=== PATIENT | male | born 1985 | race Caucasian/White ===

== ENCOUNTER 2019-04-21 00:14 | Inpatient (IN) | payer BC ==
[2019-04-21] MEDS: DEXTROSE 5%-0.9% NACL 1,000 ML IV ×2 (01:00→13:10)
[2019-04-21] MEDS ORDERED: LEVOFLOXACIN 500MG/D5W (PMX) 100 ML IVPB (03:00)
[2019-04-21 05:31] LABS: ADD MAN DIFF? NO
[2019-04-21 05:37] LABS: BASOPHILS % 0.6 % (0.0-2.0); EOSINOPHILS # 0.2 10^3/ul (0.0-0.5); HEMATOCRIT 41.7 % (42.0-52.0); HEMOGLOBIN 14.1 g/dl (14.0-18.0); LYMPHOCYTES # 2.4 10^3/ul (0.8-2.9); LYMPHOCYTES % 36.2 % (15.0-51.0); MEAN CORPUSCULAR HEMOGLOBIN 30.9 pg (29.0-33.0); MEAN CORPUSCULAR HGB CONC 33.8 g/dl (32.0-37.0); MEAN CORPUSCULAR VOLUME 91.4 fl (82.0-101.0); MONOCYTE # 0.5 10^3/ul (0.3-0.9); MONOCYTES % 7.4 % (0.0-11.0); NEUTROPHIL # 3.5 10^3/ul (1.6-7.5); NEUTROPHILS % 52.5 % (39.0-77.0); PLATELET COUNT 189 10^3/UL (140-415); RED BLOOD COUNT 4.56 10^6/ul (4.70-6.10); RED CELL DISTRIBUTION WIDTH 11.4 % (11.5-14.5)
[2019-04-21 05:37] LABS: WHITE BLOOD COUNT 6.6 10^3/ul (4.8-10.8)
[2019-04-21] MEDS: LEVOFLOXACIN 500MG/D5W (PMX) 100 ML IVPB (05:50)
[2019-04-21] MEDS: PANTOPRAZOLE 40 MG INJ IV (06:34)
[2019-04-21 06:38] LABS: ALANINE AMINOTRANSFERASE 53 IU/L (13-69); ALBUMIN 3.6 g/dl (3.3-4.9); ALBUMIN/GLOBULIN RATIO 1.44; ALKALINE PHOSPHATASE 56 IU/L (42-121); ANION GAP 10 (5-13); ASPARTATE AMINO TRANSFERASE 33 IU/L (15-46); BILIRUBIN,INDIRECT 0.9 mg/dl (0-1.1); BILIRUBIN,TOTAL 0.9 mg/dl (0.2-1.3); BLOOD UREA NITROGEN 10 mg/dl (7-20); CALCIUM 8.9 mg/dl (8.4-10.2); CARBON DIOXIDE 23 mmol/L (21-31); CHLORIDE 111 mmol/L (97-110); CREATININE 0.82 mg/dl (0.61-1.24); Estimated GFR > 60 mL/min (>60); GLUCOSE 95 mg/dl (70-220); LIPASE 319 U/L (23-300); POTASSIUM 3.7 mmol/L (3.5-5.1); SODIUM 144 mmol/L (135-144); TOTAL PROTEIN 6.1 g/dl (6.1-8.1)
[2019-04-21] MEDS: ACETAMINOPHEN 325 MG TAB PO (06:43)
[2019-04-21] MEDS: metroNIDAZOLE 500 MG/NS (PMX) 100 ML IVPB ×2 (16:22→22:09)
[2019-04-21] MEDS: LORAZEPAM 2 MG INJ IV (16:34)
[2019-04-21 17:25] LABS: CARCINOEMBRYONIC ANTIGEN 2.6 ng/ml (0.0-5.0)
[2019-04-21 17:29] LABS: CANCER ANTIGEN 19-9 31.3 U/ml (0.0-37.0)
[2019-04-21] MEDS: BISACODYL (EC) 5 MG TAB PO (18:45)
[2019-04-21] MEDS: PEG/ELECTROLYTES 4L BTL PO (19:04)
[2019-04-22] MEDS: DEXTROSE 5%-0.9% NACL 1,000 ML IV (00:01)
[2019-04-22] MEDS: BISACODYL (EC) 5 MG TAB PO (04:28)
[2019-04-22] MEDS: LEVOFLOXACIN 500MG/D5W (PMX) 100 ML IVPB (04:28)
[2019-04-22] MEDS: PEG/ELECTROLYTES 4L BTL PO (04:29)
[2019-04-22] MEDS: ONDANSETRON 4 MG INJ IV ×2 (04:50→18:33)
[2019-04-22 05:41] LABS: ADD MAN DIFF? NO
[2019-04-22 05:51] LABS: WHITE BLOOD COUNT 6.1 10^3/ul (4.8-10.8)
[2019-04-22 05:51] LABS: BASOPHILS % 0.7 % (0.0-2.0); EOSINOPHILS # 0.2 10^3/ul (0.0-0.5); EOSINOPHILS % 3.1 % (0.0-7.0); HEMATOCRIT 43.5 % (42.0-52.0); HEMOGLOBIN 14.8 g/dl (14.0-18.0); LYMPHOCYTES # 1.9 10^3/ul (0.8-2.9); LYMPHOCYTES % 31.5 % (15.0-51.0); MEAN CORPUSCULAR HEMOGLOBIN 30.8 pg (29.0-33.0); MEAN CORPUSCULAR VOLUME 90.6 fl (82.0-101.0); MEAN PLATELET VOLUME 11.1 fl (7.4-10.4); MONOCYTE # 0.5 10^3/ul (0.3-0.9); MONOCYTES % 7.9 % (0.0-11.0); NEUTROPHIL # 3.5 10^3/ul (1.6-7.5); NEUTROPHILS % 56.5 % (39.0-77.0); PLATELET COUNT 189 10^3/UL (140-415); RED CELL DISTRIBUTION WIDTH 11.5 % (11.5-14.5)
[2019-04-22] MEDS: metroNIDAZOLE 500 MG/NS (PMX) 100 ML IVPB ×2 (06:06→14:36)
[2019-04-22] MEDS: PANTOPRAZOLE 40 MG INJ IV (06:06)
[2019-04-22 06:08] LABS: INR 1.13; PROTIME 14.6 Sec (11.9-14.9); PT RATIO 1.1
[2019-04-22 06:09] LABS: PARTIAL THROMBOPLASTIN TIME 27.1 Sec (23.0-35.0)
[2019-04-22 06:14] LABS: ALANINE AMINOTRANSFERASE 47 IU/L (13-69); ALBUMIN 3.6 g/dl (3.3-4.9); ALBUMIN/GLOBULIN RATIO 1.33; ALKALINE PHOSPHATASE 59 IU/L (42-121); ANION GAP 9 (5-13); ASPARTATE AMINO TRANSFERASE 24 IU/L (15-46); BILIRUBIN,INDIRECT 0.6 mg/dl (0-1.1); BILIRUBIN,TOTAL 0.6 mg/dl (0.2-1.3); BLOOD UREA NITROGEN 3 mg/dl (7-20); CALCIUM 9.1 mg/dl (8.4-10.2); CARBON DIOXIDE 23 mmol/L (21-31); CHLORIDE 114 mmol/L (97-110); CREATININE 0.68 mg/dl (0.61-1.24); Estimated GFR > 60 mL/min (>60); GLUCOSE 94 mg/dl (70-220); POTASSIUM 3.4 mmol/L (3.5-5.1); SODIUM 146 mmol/L (135-144); TOTAL PROTEIN 6.3 g/dl (6.1-8.1)
[2019-04-22 09:29] LABS: C-REACTIVE PROTEIN < 0.5 mg/dl (0.0-0.9)
[2019-04-22] MEDS: PROPOFOL 60 ML (12:06)
[2019-04-22] MEDS: POTASSIUM CHLORIDE (SR) 20 MEQ TAB PO (16:15)
[2019-04-22 17:51] LABS: ADD UMIC NO; UR ASCORBIC ACID NEGATIVE (NEGATIVE); UR BILIRUBIN (Dip) NEGATIVE (NEGATIVE); UR BLOOD (Dip) NEGATIVE (NEGATIVE); UR CLARITY CLEAR (CLEAR); UR COLOR YELLOW (YELLOW); UR GLUCOSE (Dip) NEGATIVE (NEGATIVE); UR KETONES (Dip) NEGATIVE (NEGATIVE); UR LEUKOCYTE ESTERASE (Dip) NEGATIVE Leu/ul (NEGATIVE); UR NITRITE (Dip) NEGATIVE (NEGATIVE); UR SPECIFIC GRAVITY (Dip) 1.008 (1.003-1.030); UR TOTAL PROTEIN (Dip) NEGATIVE (NEGATIVE); UR UROBILINOGEN (Dip) NEGATIVE (NEGATIVE)
[2019-04-22] MEDS: LORAZEPAM 2 MG INJ IV (18:57)
[2019-04-22] MEDS: BUSPIRONE 10 MG TAB PO (21:07)
[2019-04-23 05:44] LABS: LIPASE 343 U/L (23-300)
[2019-04-23] MEDS: PANTOPRAZOLE 40 MG INJ IV (05:55)
[2019-04-23] MEDS: BUSPIRONE 10 MG TAB PO (08:22)
== END 2019-04-23 16:00 | disposition home or self-care (01) | DRG 392 ==
LOC: 2NE 01:14 → 5EC 01:20 → 2NE 01:20 → 5EC 00:14
PROC: 0DB58ZX Excision of Esophagus, Via Natural or Artificial Opening Endoscopic, Diagnostic (ICD-10-PCS; principal; 2019-04-22 11:15)
PROC: 0DB68ZX Excision of Stomach, Via Natural or Artificial Opening Endoscopic, Diagnostic (ICD-10-PCS; 2019-04-22 11:15)
PROC: 0DBK8ZX Excision of Ascending Colon, Via Natural or Artificial Opening Endoscopic, Diagnostic (ICD-10-PCS; 2019-04-22 11:15)
PROC: 0DBP8ZX Excision of Rectum, Via Natural or Artificial Opening Endoscopic, Diagnostic (ICD-10-PCS; 2019-04-22 11:15)
PROC: 0DBM8ZX Excision of Descending Colon, Via Natural or Artificial Opening Endoscopic, Diagnostic (ICD-10-PCS; 2019-04-22 11:15)
DX: K29.00 Acute gastritis without bleeding (principal); K22.10 Ulcer of esophagus without bleeding; K29.50 Unspecified chronic gastritis without bleeding; F12.90 Cannabis use, unspecified, uncomplicated; Z59.0 Homelessness; K76.0 Fatty (change of) liver, not elsewhere classified; K44.9 Diaphragmatic hernia without obstruction or gangrene; R74.8 Abnormal levels of other serum enzymes
CPT/HCPCS: 80053; 81003; 82378; 83690; 85025; 85610; 85651; 85730; 86140; 86301; 87045; 87075; 87086; 87177; 88305; 88312; 88313